=== PATIENT | male | born 1995 | race Two or more races ===

== ENCOUNTER 2019-06-06 02:07 | Emergency (ER) | payer OTHER ==
[~2019-06-06] VITALS: Ht 185.4 cm; Wt 100.7 kg
[2019-06-06 02:40] VITALS: BP 122/67
[2019-06-06] MEDS ORDERED: KETOROLAC TROMETHAMINE INJ 60 MG/2 ML VIAL IM ONE ×2 (02:52→03:00)
== END 2019-06-06 03:21 | disposition home or self-care (01) ==
LOC: ER 02:12
DX: M25.561 Pain in right knee (principal); F10.10 Alcohol abuse, uncomplicated; F17.200 Nicotine dependence, unspecified, uncomplicated; Y90.9 Presence of alcohol in blood, level not specified
CPT/HCPCS: 96372; 99283; 99406; J1885